=== PATIENT | female | born 1970 | race Caucasian/White ===

== ENCOUNTER 2021-10-16 08:09 | Day surgery (SDC) | payer OTHER ==
[2021-10-15 09:51] LABS: BASOPHILS # (AUTO) 0.1 K/uL (0.00-0.22); EOSINOPHILS # (AUTO) 0.1 K/uL (0-0.4); EOSINOPHILS % (AUTO) 1.7 % (0.0-4.0); HEMATOCRIT 39.9 % (36-48); HEMOGLOBIN 13.8 g/dL (12.0-16.0); LYMPHOCYTES # (AUTO) 2.5 K/uL (2.5-16.5); LYMPHOCYTES % (AUTO) 37.9 % (20.5-51.1); MEAN CORPUSCULAR HEMOGLOBIN 31 pg (27-31); MEAN CORPUSCULAR HGB CONC 35 g/dL (33-37); MEAN CORPUSCULAR VOLUME 90.3 fL (80-94); MONOCYTES # (AUTO) 0.4 K/uL (0.8-1.0); MONOCYTES % (AUTO) 6.1 % (1.7-9.3); NEUTROPHILS # (AUTO) 3.5 K/uL (1.8-7.7); NEUTROPHILS % (AUTO) 53.3 % (42.2-75.2); PLATELET COUNT (AUTO) 299 K/uL (140-450); RED BLOOD CELL COUNT(AUTO) 4.42 MIL/uL (4.20-5.40); RED CELL DISTRIBUTION WIDTH 12.6 % (11.6-13.7); WHITE BLOOD COUNT (AUTO) 6.6 K/uL (4.8-10.8)
[2021-10-15 10:10] LABS: ALBUMIN 4.1 g/dL (3.4-5.0); ANION GAP 18.3 (8-16); CARBON DIOXIDE 21.7 mmol/L (21-32); CREATININE 0.6 mg/dL (0.6-1.3); TOTAL BILIRUBIN 0.3 mg/dL (0.0-1.0)
[~2021-10-16] VITALS: Ht 157.5 cm; Wt 76.7 kg
[2021-10-16] MEDS ORDERED: LIDOCAINE 1% 500 MG/50 ML VIAL ONE (09:53)
[2021-10-16] MEDS ORDERED: BUPIVACAINE-MPF/EPI 0.25% 10 ML VIAL INJ ONE (09:53)
[2021-10-16] MEDS ORDERED: ROCURONIUM 50 MG/5 ML VIAL IV ONE ×2 (10:00→11:02)
[2021-10-16] MEDS ORDERED: PROPOFOL 200 MG/20 ML VIAL IV ONE ×2 (10:00→10:11)
[2021-10-16] MEDS ORDERED: KETOROLAC 30 MG/ML VIAL ONE (10:00)
[2021-10-16] MEDS ORDERED: SEVOFLURANE 250 ML BTL INH ONE (10:00)
[2021-10-16] MEDS ORDERED: MIDAZOLAM 2 MG/2 ML VIAL ONE (10:05)
[2021-10-16] MEDS ORDERED: ONDANSETRON 4 MG/2 ML VIAL ONE (10:12)
[2021-10-16] MEDS ORDERED: KETOROLAC 60 MG/2 ML VIAL IM ONE (11:32)
[2021-10-16] MEDS ORDERED: HYDROmorphone 1 MG/ML AMP IVP PRN (12:30)
[2021-10-16] MEDS ORDERED: MORPHINE SULFATE 2 MG/ML SYR IVP PRN (12:30)
[2021-10-16] MEDS ORDERED: MORPHINE SULFATE 4 MG/ML SYR IV PRN (12:30)
[2021-10-16] MEDS ORDERED: HYDROcodone/APAP 5/325 MG 1 TAB TAB PO PRN (12:30)
[2021-10-16] MEDS ORDERED: ONDANSETRON 4 MG/2 ML VIAL IV PRN (12:30)
[2021-10-16] MEDS ORDERED: ACET-8386 PO (12:32)
== END 2021-10-16 15:20 | disposition home or self-care (01) ==
LOC: MDS 08:09 → MMU 08:15 → MDS 15:20
PROVIDERS: ATTEND Surgery
DX: R22.2 Localized swelling, mass and lump, trunk (principal); L92.8 Other granulomatous disorders of the skin and subcutaneous tissue; Z20.822 Contact with and (suspected) exposure to COVID-19
CPT/HCPCS: 11406; 12036; 36415; 71045; 80053; 85025; 86886; 86900; 86901; 87426; 93005; J0690; J1885; J2001; J2250; J2270; J2405; J2704; J3490; J7060; 88304